=== PATIENT | female | born 1975 | race Native Hawaiian/Other Pacific Islander ===

== ENCOUNTER 2019-05-09 22:00 | Emergency (ER) | payer OTHER ==
[~2019-05-09] VITALS: Ht 162.6 cm; Wt 61.7 kg
[2019-05-09 23:34] LABS: PLATELET COUNT 95 K/uL (152-353)
[2019-05-10 01:40] VITALS: BP 110/62; TEMP 98.3
== END 2019-05-10 01:40 | disposition home or self-care (01) ==
LOC: ED 22:00
PROVIDERS: Emergency Medicine
DX: R10.84 Generalized abdominal pain (principal)
CPT/HCPCS: 36415; 80053; 81000; 81025; 83605; 85027; 87040; 87077; 87086; 87088; 87186; 87205; 96372; 99283; J0696

== ENCOUNTER 2019-05-25 10:32 | Outpatient (CLI) | payer OTHER | END 2019-05-25 19:33 | disposition home or self-care (01) | LOC: US 10:32 | DX: K76.0 Fatty (change of) liver, not elsewhere classified (principal) ==